=== PATIENT | male | born 1990 | race Two or more races ===

== ENCOUNTER 2018-11-02 08:05 | Outpatient (CLI) | payer BC ==
--- NOTE | 2018-11-02 09:31 | MRI ---
MRI BRAIN WITH AND WITHOUT IV CONTRAST: HISTORY: Migraine without aura, intractable. FINDINGS: No restricted diffusion is seen. No evidence of infarct, hemorrhage, mass, midline shift, or abnorma l extraaxial fluid collection is seen. No abnormal postcontrast enhancement is noted. There is a ti ny focus of T2 prolongation in the left basal ganglia. This is a nonspecific finding and may be seen in patients with migraine headaches. Other processes such as demyelinating disease cannot be comple tely excluded. Ventricular size is normal and the basilar cisterns are patent. There is a mucous re tention cyst versus polyp in the left maxillary sinus. Low-lying cerebellar tonsils are present. IMPRESSION: 1. No evidence of acute intracranial process or mass. 2. Tiny nonspecific focus of T2 prolongation in the left basal ganglia. 3. Mucous retention cyst versus polyp in the left maxillary sinus. POS: [facility]
[2018-11-02] MEDS ORDERED: Gadobenate Dimeglumine 529 MG/1 ML (20ML VIAL) ONE (10:35)
== END 2018-11-02 08:06 | disposition home or self-care (01) ==
LOC: BICMRI 08:05
PROVIDERS: ATTEND Nurse Practitioner Acute Care
DX: G43.019 Migraine without aura, intractable, without status migrainosus (principal)
CPT/HCPCS: 70553

== ENCOUNTER 2020-05-10 13:32 | Outpatient (CLI) | payer BC ==
[2020-05-10] MEDS ORDERED: Magnevist 469MG/ML 20 ML VIAL ONE (14:56)
--- NOTE | 2020-05-11 08:54 | MRI ---
EXAM: MRI of the brain without and with contrast HISTORY: Migraine headaches for 2 years COMPARISON: 11/02/2018 TECHNIQUE: Multiplanar multisequence MR images were obtained of the brain without and with IV contras t. FINDINGS: The brain demonstrates normal signal intensity on all obtained sequences. No restricted diffusion. No abnormal enhancement. No hydronephrosis. No extra-axial fluid collection or intracranial hemorrhage. The expected flow voids are present. Corpus callosum, pituitary, and craniocervical junction are within normal limits. The calvarium and overlying soft tissues are unremarkable. There is a small mucus retention cyst in the left maxillary sinus. The other paranasal sinuses and mastoid air cells are well aerated. IMPRESSION: No evidence of acute intracranial abnormality.
== END 2020-05-10 13:33 | disposition home or self-care (01) ==
LOC: BICMRI 13:32
PROVIDERS: ATTEND Nurse Practitioner Acute Care
DX: G43.019 Migraine without aura, intractable, without status migrainosus (principal)
CPT/HCPCS: 70553